=== PATIENT | female | born 1990 ===

== ENCOUNTER 2020-12-04 11:42 | Emergency (ER) | payer OTHER ==
[~2020-12-04] VITALS: Ht 165.1 cm; Wt 84.5 kg
[2020-12-04 11:46] VITALS: BP 109/78
--- NOTE | 2020-12-04 13:29 | NUR ---
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
--- NOTE | 2020-12-04 13:56 | NUR ---
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
--- NOTE | 2020-12-04 14:39 | NUR ---
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
== END 2020-12-04 14:42 | disposition left against medical advice (07) ==
LOC: ED 14:36
DX: R10.9 Unspecified abdominal pain (principal); Z53.21 Procedure and treatment not carried out due to patient leaving prior to being seen by health care provider